=== PATIENT | male | born 1970 | race Hispanic/Latino ===

== ENCOUNTER 2020-02-14 09:39 | Emergency (ER) | payer SELFPAY ==
[~2020-02-14] VITALS: Ht 170.2 cm; Wt 97.5 kg
[2020-02-14] MEDS ORDERED: DONNATAL/LIDOCAINE/MAALOX 30 ML SUSP PO ONE (10:15)
--- NOTE | 2020-02-14 10:19 | Emergency Department Note ---
History of Present Illnes History of Present Illness Chief Complaint: epigastric pain x 6 day only after eating History of Present Illness This is a 49 year old male. was doing well rir to this. then have epigastric pain and chills only after eating(spicy food). 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 Any updates have been documented here. Past Medical History Recent Fever: No Clinical Suspicion of Infectio: No New/Unexplained Change in Ment: No Past Medical History: None Past Surgical History: None Social History Smoking Cessation: Never Smoker Counseling Performed: No Alcohol Use: Daily Any Illegal Drug Use: No TB Exposure/Symptoms: No Physically hurt or threatened: No Family History Family history of heart diseas: No Other Any Pre-Existing Lines (PICC,: No Is patient up to date on immun: Yes Last Flu: none Last Pneumovax: none Review of Systems Review of Systems Constitutional: as per HPI, chills; diaphoresis, fever, malaise, weakness EENTM: no symptoms Cardiovascular: no symptoms Respiratory: no symptoms Gastrointestinal: abdominal pain; constipation, diarrhea, nausea, vomiting, other Genitourinary: no symptoms Musculoskeletal: no symptoms Neurological: no symptoms Psychological: no symptoms Endocrine: no symptoms Hematological/Lymphatic: no symptoms Review of other systems All other systems reviewed and negative. Physical Exam Related Data Allergies: Coded Allergies: No Known Allergies (Unverified , 02/14/20) Triage Vital Signs Vital Signs Date Time Temp Pulse Resp B/P (MAP) Pulse Ox O2 Delivery O2 Flow Rate FiO2 02/14/20 09:45 98.0 92 18 125/93 99 Physical Exam CONSTITUTIONAL Constitutional: well-developed, well-nourished HENT HENT: normocephalic, atraumatic, oropharynx clear/moist, nose normal HENT L/R: left ext ear normal, right ext ear normal EYES Eyes: PERRL, conjunctivae normal NECK Neck: ROM normal PULMONARY Pulmonary: effort normal, breath sounds normal CARDIOVASCULAR Cardiovascular: regular rhythm, heart sounds normal, capillary refill normal, normal rate GASTROINTESTINAL Abdominal: soft, bowel sounds normal; distension; tender (mild epigastric); guarding, mass, rebound, hernia, left CVA tenderness, right CVA tenderness GENITOURINARY Genitourinary: exam deferred SKIN Skin: warm, dry MUSCULOSKELETAL Musculoskeletal: ROM normal NEUROLOGICAL Neurological: alert, oriented x 3, no gross motor or sensory deficits PSYCHOLOGICAL Psychological: mood/affect normal, judgement normal Critical Care Time Subsequent provider I assumed direction of critical care for this patient from another provider of my specialty. Assessment & Plan Assessment & Plan Problems: (1) Acute gastritis Assessment & Plan rxs for viscous lidocaine and prevpac Reassessment Reassessment pain resolved s/p gi cocktail Depart Disposition: HOME, SELF-CARE Last Vital Signs Date Time Temp Pulse Resp B/P (MAP) Pulse Ox O2 Delivery O2 Flow Rate FiO2 02/14/20 09:45 98.0 92 18 125/93 99 Medications in the ED Belladonna Alkaloids/ Phenobarbital 30 ml ONCE ONCE PO Last administered on 02/14/20at 10:18; Admin Dose 30 ML; Start 02/14/20 at 10:15; Stop 02/14/20 at 10:16; Status UNV Lidocaine HCl 15 ml STK-MED ONCE .ROUTE ; Start 02/14/20 at 10:21; Stop 02/14/20 at 10:17; Status DC Belladonna Alkaloids/ Phenobarbital 10 ml STK-MED ONCE .ROUTE ; Start 02/14/20 at 10:21; Stop 02/14/20 at 10:17; Status DC Magnesium Aluminum Silicate 30 ml STK-MED ONCE .ROUTE ; Start 02/14/20 at 10:22; Stop 02/14/20 at 10:17; Status DC MARCY KHAN February 14, 2020 10:19
[2020-02-14] MEDS ORDERED: BELLADONNA ALK/PHENOBARBITAL 5 ML UDC ONE (10:21)
[2020-02-14] MEDS ORDERED: LIDOCAINE VISC 2% SOLN 15 ML UDC ONE (10:21)
[2020-02-14] MEDS ORDERED: MAGNESIUM/ALUMINUM/SIMETHICONE 30 ML UDC ONE (10:22)
== END 2020-02-14 10:32 | disposition home or self-care (01) ==
LOC: FSED 09:39
DX: R10.13 Epigastric pain (principal); K29.00 Acute gastritis without bleeding
CPT/HCPCS: 99283